=== PATIENT | female | born 1945 | race Two or more races ===

== ENCOUNTER 2023-05-04 17:04 | Inpatient (IN) | payer OTHER ==
[~2023-05-04] VITALS: Ht 152.4 cm; Wt 88.9 kg
[~2023-05-04 17:04] MED LIST: LEVOXYL137 MCG; METFORMIN HYDRO25 GM
[2023-05-04] MEDS ORDERED: ZESTRIL10 M1 PO (18:06)
[2023-05-04] MEDS ORDERED: LOPRESSOR25 MG PO (18:06)
[2023-05-04] MEDS ORDERED: SYNTHROID137 MCG PO (18:06)
[2023-05-04 19:47] LABS: INR 1.26; PARTIAL THROMBOPLASTIN TIME 24.5 SECONDS (22.0-34.0)
[2023-05-04 20:02] LABS: BILIRUBIN,CONJUGATED 9.92 mg/dL (0.0-0.2); BILIRUBIN,UNCONJUGATED 3.3 mg/dL (0.0-0.6); CREATININE SERUM 1.31 mg/dL (0.55-1.02); GFR 39.26; POTASSIUM 3.61 mEq/L (3.5-5.1)
[2023-05-04 20:10] LABS: BILIRUBIN TOTAL 13.22 mg/dL (0.3-1.2); CALCIUM 13.3 mg/dL (8.5-10.1)
[2023-05-04 21:20] LABS: URINE APPEARANCE Cloudy; URINE BILIRRUBIN Large (NEGATIVE); URINE BLOOD Negative; URINE COLOR Dark Yellow; URINE GLUCOSE Negative (NEGATIVE); URINE LEUKOCYTE Moderate; URINE NITRATE Positive; URINE PROTEIN 30 (NEGATIVE)
[2023-05-04 21:23] LABS: URINE BACTERIA 95.7 uL (0.0-1933); URINE EPITHELIAL CELLS 39.8 uL (0.0-38.8); URINE RBC 23.5 uL (0.0-20.8); URINE WBC 116.5 uL (0.0-23.2)
[2023-05-04 21:49] LABS: URINE CRYSTALS MODERATE /HPF; URINE MUCUS SCANT
[2023-05-04 21:58] LABS: HEMATOCRIT 24.8 % (36.0-45.00); MEAN CELL VOLUME 89.5 fL (80.00-100.00); MEAN CORPUSCULAR HGB CONC 33.2 g/dl (32.0-36.0); RED BLOOD COUNT 2.78 M/uL (4.00-6.00)
[2023-05-04 22:00] LABS: MEAN CORPUSCULAR HEMOGLOBIN 29.8 pg (27.00-32.0)
[2023-05-04 22:08] LABS: PLATELET COUNT 20 K/uL (150-450)
[2023-05-04 22:10] LABS: HEMOGLOBIN 8.3 g/dL (12.0-15.00)
[2023-05-06 07:31] LABS: ALBUMIN 2.4 gm/dL (3.4-5.0); CALCIUM 11.4 mg/dL (8.5-10.1); CREATININE SERUM 1.15 mg/dL (0.55-1.02); GFR 45.63; GLOBULINA 3.9 G/DL (2.4-3.5); PHOSPHOROUS 2.1 mg/dL (2.5-4.9); POTASSIUM 4.24 mEq/L (3.5-5.1); TOTAL PROTEIN 6.3 gm/dL (6.4-8.2)
[2023-05-06 09:03] LABS: BILIRUBIN TOTAL 11.65 mg/dL (0.3-1.2)
[2023-05-06 09:05] LABS: MAGNESIUM 1.2 mg/dL (1.8-2.4)
[2023-05-07 07:10] LABS: ALBUMIN 2.7 gm/dL (3.4-5.0); CALCIUM 11.3 mg/dL (8.5-10.1); CREATININE SERUM 1.4 mg/dL (0.55-1.02); GFR 36.37; POTASSIUM 4.5 mEq/L (3.5-5.1); TOTAL PROTEIN 6.7 gm/dL (6.4-8.2)
[2023-05-07 07:37] LABS: HEMATOCRIT 35.4 % (36.0-45.00); HEMOGLOBIN 11.8 g/dL (12.0-15.00); MEAN CELL VOLUME 89.2 fL (80.00-100.00); MEAN CORPUSCULAR HEMOGLOBIN 29.7 pg (27.00-32.0); MEAN CORPUSCULAR HGB CONC 33.3 g/dl (32.0-36.0); PLATELET COUNT 232 K/uL (150-450); RED BLOOD COUNT 3.97 M/uL (4.00-6.00)
[2023-05-07 07:43] LABS: BILIRUBIN TOTAL 12.01 mg/dL (0.3-1.2)
[2023-05-07 07:44] LABS: MAGNESIUM 1.4 mg/dL (1.8-2.4)
[2023-05-08 10:08] LABS: CA 125 50.9 U/mL (0.0-38.1); CA 15-3 12.8 U/mL (0.0-25.0)
[2023-05-08 13:43] LABS: ob POSITIVE (NEGATIVE)
[2023-05-09 16:22] LABS: ALBUMIN 2.2 gm/dL (3.4-5.0); CALCIUM 9.3 mg/dL (8.5-10.1); CREATININE SERUM 1.33 mg/dL (0.55-1.02); GFR 38.58; GLOBULINA 3.6 G/DL (2.4-3.5); POTASSIUM 4.09 mEq/L (3.5-5.1); TOTAL PROTEIN 5.8 gm/dL (6.4-8.2)
[2023-05-09 16:24] LABS: BILIRUBIN TOTAL 12.73 mg/dL (0.3-1.2)
[2023-05-09 20:57] LABS: HEMATOCRIT 34.3 % (36.0-45.00); HEMOGLOBIN 11.4 g/dL (12.0-15.00); MEAN CELL VOLUME 87.9 fL (80.00-100.00); MEAN CORPUSCULAR HEMOGLOBIN 29.1 pg (27.00-32.0); MEAN CORPUSCULAR HGB CONC 33.1 g/dl (32.0-36.0)
[2023-05-09 21:26] LABS: PLATELET COUNT 194 K/uL (150-450)
[2023-05-12 07:53] LABS: HEMATOCRIT 32.4 % (36.0-45.00); HEMOGLOBIN 10.7 g/dL (12.0-15.00); MEAN CELL VOLUME 90.3 fL (80.00-100.00); MEAN CORPUSCULAR HEMOGLOBIN 29.7 pg (27.00-32.0); MEAN CORPUSCULAR HGB CONC 32.9 g/dl (32.0-36.0); PLATELET COUNT 164 K/uL (150-450); RED BLOOD COUNT 3.59 M/uL (4.00-6.00); RED CELL DISTRIBUTION WIDTH 16.9 % (11.5-14.5)
[2023-05-12 08:50] LABS: BILIRUBIN TOTAL 15.96 mg/dL (0.3-1.2); CALCIUM 8.5 mg/dL (8.5-10.1); CREATININE SERUM 1.14 mg/dL (0.55-1.02); GFR 46.1; GLOBULINA 3.6 G/DL (2.4-3.5); MAGNESIUM 1.5 mg/dL (1.8-2.4); POTASSIUM 3.71 mEq/L (3.5-5.1); TOTAL PROTEIN 5.6 gm/dL (6.4-8.2)
[2023-05-16] MEDS ORDERED: LISINOPRIL10 MG PO (13:04)
[2023-05-16] MEDS ORDERED: LOPRESSOR25 MG PO (13:05)
[2023-05-16] MEDS ORDERED: FAMOTIDINE20 MG PO (13:06)
[2023-05-16] MEDS ORDERED: Lantus 1000 UNITS/10 SUBCUTANEO (13:06)
[2023-05-16] MEDS ORDERED: LACTULOSE10 GM/152 PO (13:06)
[2023-05-16] MEDS ORDERED: LEVO-T137 MCG PO (13:07)
[2023-05-16] MEDS ORDERED: RELAFEN DS1000 MG PO (13:08)
== END 2023-05-16 15:07 | disposition home or self-care (01) | DRG 478 ==
LOC: ER 17:04 → MEDI 05-05 13:48 → SEC-K 05-05 13:48 → MEDI 05-05 15:30
PROVIDERS: General Practice; ADMIT Internal Medicine Hematology & Oncology; ATTEND Internal Medicine Hematology & Oncology
PROC: BW21ZZZ Computerized Tomography (CT Scan) of Abdomen and Pelvis (ICD-10-PCS; 2023-05-04)
PROC: 8E0ZXY6 Isolation (ICD-10-PCS; 2023-05-05)
PROC: BW40ZZZ Ultrasonography of Abdomen (ICD-10-PCS; 2023-05-05)
PROC: 0QB33ZX Excision of Left Pelvic Bone, Percutaneous Approach, Diagnostic (ICD-10-PCS; principal; 2023-05-07)
PROC: CP1Z1ZZ Planar Nuclear Medicine Imaging of Musculoskeletal System, All using Technetium 99m (Tc-99m) (ICD-10-PCS; 2023-05-07)
PROC: BW21YZZ Computerized Tomography (CT Scan) of Abdomen and Pelvis using Other Contrast (ICD-10-PCS; 2023-05-08)
DX: C79.51 Secondary malignant neoplasm of bone (principal); C24.0 Malignant neoplasm of extrahepatic bile duct; D61.818 Other pancytopenia; N39.0 Urinary tract infection, site not specified; N17.9 Acute kidney failure, unspecified; C57.9 Malignant neoplasm of female genital organ, unspecified; E86.0 Dehydration; D63.0 Anemia in neoplastic disease; D69.6 Thrombocytopenia, unspecified; R41.0 Disorientation, unspecified; K76.82 Hepatic encephalopathy; K59.00 Constipation, unspecified; E83.52 Hypercalcemia; E83.42 Hypomagnesemia; F32.9 Major depressive disorder, single episode, unspecified; R13.12 Dysphagia, oropharyngeal phase; I12.9 Hypertensive chronic kidney disease with stage 1 through stage 4 chronic kidney disease, or unspecified chronic kidney disease; N18.30 Chronic kidney disease, stage 3 unspecified; Z53.1 Procedure and treatment not carried out because of patient's decision for reasons of belief and group pressure

== ENCOUNTER 2023-05-25 16:43 | Inpatient (IN) | payer OTHER ==
[~2023-05-25] VITALS: Ht 167.6 cm; Wt 99.8 kg
[~2023-05-25 16:43] MED LIST changes: +FAMOTIDINE20 MG PO; +LACTULOSE10 GM/152 PO; +LEVO-T137 MCG PO; +LISINOPRIL10 MG PO; +LOPRESSOR25 MG PO; +Lantus 1000 UNITS/10 SUBCUTANEO; +RELAFEN DS1000 MG PO; +SYNTHROID137 MCG PO; +ZESTRIL10 M1 PO
[2023-05-25 18:15] LABS: HEMATOCRIT 30.6 % (36.0-45.00); HEMOGLOBIN 10.4 g/dL (12.0-15.00); MEAN CELL VOLUME 89.7 fL (80.00-100.00); MEAN CORPUSCULAR HEMOGLOBIN 30.5 pg (27.00-32.0); PLATELET COUNT 233 K/uL (150-450); RED BLOOD COUNT 3.41 M/uL (4.00-6.00); RED CELL DISTRIBUTION WIDTH 19.7 % (11.5-14.5)
[2023-05-25 18:33] LABS: ALBUMIN 1.8 gm/dL (3.4-5.0); CALCIUM 10.8 mg/dL (8.5-10.1); CREATININE SERUM 1.76 mg/dL (0.55-1.02); GFR 27.93; POTASSIUM 3.54 mEq/L (3.5-5.1)
[2023-05-25 18:35] LABS: BILIRUBIN,UNCONJUGATED 2.97 mg/dL (0.0-0.6)
[2023-05-25 18:36] LABS: GLOBULINA 4.5 G/DL (2.4-3.5); TOTAL PROTEIN 6.3 gm/dL (6.4-8.2)
[2023-05-25 18:38] LABS: BILIRUBIN TOTAL 27.74 mg/dL (0.3-1.2); BILIRUBIN,CONJUGATED 24.77 mg/dL (0.0-0.2)
[2023-05-27 09:16] LABS: ALBUMIN 1.8 gm/dL (3.4-5.0); CALCIUM 10.4 mg/dL (8.5-10.1); CREATININE SERUM 1.48 mg/dL (0.55-1.02); GFR 34.11; GLOBULINA 4.1 G/DL (2.4-3.5); POTASSIUM 3.88 mEq/L (3.5-5.1); TOTAL PROTEIN 5.9 gm/dL (6.4-8.2)
[2023-05-27 09:42] LABS: BILIRUBIN TOTAL 27.22 mg/dL (0.3-1.2)
[2023-05-27 10:45] LABS: HEMATOCRIT 31.9 % (36.0-45.00); HEMOGLOBIN 10.7 g/dL (12.0-15.00); MEAN CELL VOLUME 89.8 fL (80.00-100.00); MEAN CORPUSCULAR HEMOGLOBIN 30.1 pg (27.00-32.0); MEAN CORPUSCULAR HGB CONC 33.5 g/dl (32.0-36.0); PLATELET COUNT 238 K/uL (150-450); RED BLOOD COUNT 3.55 M/uL (4.00-6.00); RED CELL DISTRIBUTION WIDTH 20.1 % (11.5-14.5)
[2023-05-29 07:25] LABS: HEMATOCRIT 34.4 % (36.0-45.00); HEMOGLOBIN 11.7 g/dL (12.0-15.00); MEAN CORPUSCULAR HEMOGLOBIN 30.6 pg (27.00-32.0); PLATELET COUNT 250 K/uL (150-450); RED BLOOD COUNT 3.82 M/uL (4.00-6.00); RED CELL DISTRIBUTION WIDTH 19.2 % (11.5-14.5)
== END 2023-05-31 10:16 | disposition expired | DRG 441 ==
LOC: ER 16:43 → SURH 20:50
PROVIDERS: General Practice; ADMIT Internal Medicine Hematology & Oncology; ATTEND Internal Medicine Hematology & Oncology
DX: K72.91 Hepatic failure, unspecified with coma (principal); G92.8 Other toxic encephalopathy; C24.0 Malignant neoplasm of extrahepatic bile duct; D61.818 Other pancytopenia; E80.6 Other disorders of bilirubin metabolism; E86.0 Dehydration; I12.9 Hypertensive chronic kidney disease with stage 1 through stage 4 chronic kidney disease, or unspecified chronic kidney disease; N18.30 Chronic kidney disease, stage 3 unspecified; D63.0 Anemia in neoplastic disease; E83.52 Hypercalcemia; Z66 Do not resuscitate